=== PATIENT | male | born 1940 | race Caucasian/White ===

== ENCOUNTER 2016-08-19 02:19 | Emergency (ER) | payer OTHER ==
[~2016-08-19] VITALS: Ht 177.8 cm; Wt 100.0 kg
[~2016-08-19 02:19] MED LIST: BENADRYL25 MG PO; CELESTONE0.6 MG/5 M PO; DILAUDID2 MG PO; GLUCOPHAGE500 MG PO; HYDROCHLOROTHIA25 MG PO; LEVITRA10 MG PO; PERCOCET 5-3251 EACH PO; PRINIVIL20 MG PO; TRAMADOL HCL50 MG PO; TRAVATAN 050 DROP/2. BOTH EYES; VITAMIN D1000 INTUN PO; ZANTAC150 MG PO; ZOFRAN ODT4 MG PO
[2016-08-19 02:44] LABS: CARBOXY HGB 1.8 % (0-5); METHEMOGLOBIN 1.1 % (0-1.5); PCO2 70 mm Hg (35-45); PO2 351 mm Hg (80-100); SITE LR; pH 6.94 (7.35-7.45)
[2016-08-19 02:45] LABS: CREATININE 1.3 mg/dL (0.6-1.3)
[2016-08-19 02:45] LABS: COMMENTS - BLOOD GASES C+; DEVICE VENT; FI02 100 %; MECHANICAL RATE 14 resp/min; MODE AC; PEEP 5 CM/H20; TIDAL VOLUME 600 ML; TOTAL RESP RATE 14 resp/min
[2016-08-19 02:49] LABS: ADD MIUA? YES; BILIRUBIN NEGATIVE; BLOOD LARGE; COLOR YELLOW ((YELLOW)); GLUCOSE (STRIP) NEGATIVE; KETONES 20; LEUKOCYTES LARGE; NITRITE POSITIVE; PROTEIN (STRIP) 100; SPECIFIC GRAVITY 1.011 (1.000-1.030); UROBILINOGEN 0.2 MG/DL (0.2-1.0)
[2016-08-19 02:55] LABS: BACTERIA RARE /HPF; EPITHELIAL CELLS RARE /HPF; MUCUS NONE SEEN /LPF; RED BLOOD CELLS TNTC /HPF (0-5); UCUL ADDED? NO; WHITE BLOOD CELLS 30-40 /HPF (0-5)
[2016-08-19 02:57] LABS: AMPHETAMINE NEGATIVE (500 ng/mL); BARBITURATES NEGATIVE (200 ng/mL); BENZODIAZEPINES NEGATIVE (150 ng/mL); COCAINE NEGATIVE (150 ng/mL); INTERNAL CONTROLS VALID? YES; METHADONE NEGATIVE (200 ng/mL); METHAMPHETAMINE NEGATIVE (500 ng/mL); OPIATES (MORPHINE) NEGATIVE (100 ng/mL); OXYCODONE NEGATIVE (100 ng/mL); PHENCYCLIDINE NEGATIVE (25 ng/mL); PROPOXYPHENE NEGATIVE (300 ng/mL); THC CANNABINOIDS NEGATIVE (50 ng/mL); TRICYCLIC ANTIDEPRESSANTS NEGATIVE (300 ng/mL)
[2016-08-19 03:11] LABS: EOSINOPHIL (%) 0.2 % (0-5); HEMATOCRIT 46.1 % (38.0-50.0); IMMATURE GRANULOCYTE COUNT 0.5 K/uL; INSTRUMENT ABS NEUTROPHIL CT 9.2 K/uL; LYMPHOCYTE COUNT 4.6 K/uL (1.0-2.8); MCH 28.1 PG (29.0-34.0); MCHC 29.7 G/DL (30.0-36.0); MCV 94.7 FL (86-99); MEAN PLAT.VOLUME 10.1 uM^3 (9.0-12.4); MONOCYTE (%) 7.6 % (3-12); MONOCYTE COUNT 1.2 K/uL (0-0.8); NEUTROPHIL (%) 59.6 % (45-76); NEUTROPHIL COUNT 9.2 K/uL (1.8-6.4); NRBC (%) 0.6 /100 WBC (0-0); PLATELET COUNT 144 K/uL (156-360); RBC DIS.WIDTH-CV 14.1 % (11.8-14.6); RED BLOOD COUNT 4.87 M/uL (4.00-5.50); WHITE BLOOD COUNT 15.5 K/uL (4.1-10.2)
[2016-08-19 03:20] LABS: CHLORIDE 100 mEq/L (99-109); SODIUM 143 mEq/L (136-147)
[2016-08-19 03:21] LABS: INTER. NORMALIZED RATIO 1.3; PROTHROMBIN TIME 13.3 (9.2-11.2); PTT 32.3 (25-32)
[2016-08-19 03:22] LABS: GLUCOSE 178 mg/dL (70-99)
[2016-08-19 03:23] LABS: ANION GAP 32 MEQ/L (2-14)
[2016-08-19 03:25] LABS: SERUM ETHYL ALCOHOL < 10 mg/dL
[2016-08-19 03:26] LABS: GFR ESTIMATE (CALCULATED) 48 mL/min/
[2016-08-19 03:27] LABS: UREA NITROGEN (BUN) 16 mg/dL (9-23)
[2016-08-19 03:29] LABS: LIPASE 48 U/L (1.0-51.0)
[2016-08-19 03:32] LABS: TROP-I INTERPRETATION NEGATIVE; TROPONIN-I 0.12 ng/mL (0.0-0.30)
[2016-08-19 03:34] LABS: BASE EXCESS -18.5 mEq/L (-3 to +3); BICARBONATE 11.3 mEq/L (22-26); PCO2 41 mm Hg (35-45); PO2 106 mm Hg (80-100); SITE LR; pH 7.05 (7.35-7.45)
[2016-08-19 03:35] LABS: COMMENTS - BLOOD GASES C+; DEVICE VENT; FI02 70 %; MECHANICAL RATE 22 resp/min; MODE AC; PEEP 5 CM/H20; TIDAL VOLUME 600 ML; TOTAL RESP RATE 22 resp/min
[2016-08-19 03:41] LABS: AMYLASE 519 IU/L (1-118)
[2016-08-19 04:37] VITALS: BP 50/37
== END 2016-08-19 04:43 ==
LOC: EME → EDBD 02:19 → EME 04:43
PROVIDERS: Emergency Medicine
PROC: 5A1935Z Respiratory Ventilation, Less than 24 Consecutive Hours (ICD-10-PCS; principal; 2016-08-19)
PROC: 5A12012 Performance of Cardiac Output, Single, Manual (ICD-10-PCS; principal; 2016-08-19)
DX: I46.9 Cardiac arrest, cause unspecified (principal); K92.2 Gastrointestinal hemorrhage, unspecified; I21.3 ST elevation (STEMI) myocardial infarction of unspecified site; J93.9 Pneumothorax, unspecified; S22.43XA Multiple fractures of ribs, bilateral, initial encounter for closed fracture; X58.XXXA Exposure to other specified factors, initial encounter; E11.9 Type 2 diabetes mellitus without complications; Z79.84 Long term (current) use of oral hypoglycemic drugs; I10 Essential (primary) hypertension; Z87.891 Personal history of nicotine dependence
CPT/HCPCS: 36600; 70450; 71010; 71250; 80047; 80048; 81003; 82150; 82803; 83605; 83690; 84484; 85025; 85610; 85730; 86900; 86901; 87040; 87070; 87077; 87186; 87205; 87801; 94002; 99281; 99285; G0480; J0171; J0461; J0692; J3370; J7050